=== PATIENT | female | born 1955 | race Caucasian/White ===

== ENCOUNTER 2018-01-24 10:48 | Emergency (ER) | payer OTHER ==
[~2018-01-24] VITALS: Ht 162.6 cm; Wt 96.2 kg
[~2018-01-24 10:48] MED LIST: TRAM50 PO
[2018-01-24] MEDS ORDERED: GABA300 (11:36)
[2018-01-24] MEDS ORDERED: XARELTO20 MG (11:37)
[2018-01-24] MEDS ORDERED: HYDR-86 (11:37)
== END 2018-01-24 12:45 | disposition home or self-care (01) ==
LOC: ER 10:48
DX: M79.662 Pain in left lower leg (principal); F32.9 Major depressive disorder, single episode, unspecified; Z87.891 Personal history of nicotine dependence; Z79.899 Other long term (current) drug therapy; Z88.8 Allergy status to other drugs, medicaments and biological substances
CPT/HCPCS: 93971